=== PATIENT | female | born 1965 | race Caucasian/White ===

== ENCOUNTER 2017-03-13 07:55 | Emergency (ER) | payer OTHER ==
[~2017-03-13] VITALS: Ht 162.6 cm; Wt 72.6 kg
[~2017-03-13 07:55] MED LIST: ALBUTEROL INHAL17 GM IH; ANTABUSE PO; BUSPIRONE HCL7.5 MG PO; CAMPRAL 333 MG333 M1 PO; CHERATUSSIN DA480 ML PO; CLONAZEPAM 0.50.5 M1 PO; CLONAZEPAM 1 MG1 M1 PO; DESYREL100 MG PO; DESYREL300 MG PO; DILANTIN100 MG PO; DOXYCYCLINE; GEODON20 MG PO; IBUPROFEN 600600 M1 PO; IBUPROFEN 800800 MG PO; KEFLEX500 MG PO; LATUDA20 MG PO; LATUDA40 MG PO; LEVAQUIN 500 M500 MG PO; LEVOTHYROXINE0.05 MG PO; LITHIUM CARBON300 M6 PO; NEURONTIN 300300 M1 PO; NEURONTIN 400400 M1 PO; NORFLEX100 MG PO; PENICILLIN V P500 MG PO; PERCOCET 5-3251 EACH PO; PRAVASTATIN SOD20 MG PO; PRISTIQ100 MG PO; PRISTIQ50 M1 PO; PROAIR HFA8.5 GM INH; PROZAC 20 MG20 M1 PO; SENNA PO; SIMVASTATIN20 MG PO; TRAZODONE 150150 M1 PO; VIMPAT150 MG PO; VISTARIL 25 MG25 M1 GT; VITAMIN D1000 UNI1 PO; ZOCOR20 MG PO
[2017-03-13] MEDS ORDERED: PERCOCET 5-3251 EACH PO (09:09)
[2017-03-13] MEDS ORDERED: ZOFRAN ODT4 MG PO (09:09)
== END 2017-03-13 08:44 | disposition home or self-care (01) ==
LOC: ER 07:55
DX: S52.502A Unspecified fracture of the lower end of left radius, initial encounter for closed fracture (principal); F17.210 Nicotine dependence, cigarettes, uncomplicated; F10.99 Alcohol use, unspecified with unspecified alcohol-induced disorder; Z88.5 Allergy status to narcotic agent; Z88.4 Allergy status to anesthetic agent; W01.0XXA Fall on same level from slipping, tripping and stumbling without subsequent striking against object, initial encounter; Y93.89 Activity, other specified; Y92.89 Other specified places as the place of occurrence of the external cause; Y99.8 Other external cause status

== ENCOUNTER 2017-03-15 12:53 | Emergency (ER) | payer OTHER ==
[~2017-03-15] VITALS: Ht 162.6 cm; Wt 54.4 kg
[~2017-03-15 12:53] MED LIST changes: +ZOFRAN ODT4 MG PO
== END 2017-03-15 13:50 | disposition home or self-care (01) ==
LOC: ER 12:53
DX: Z47.89 Encounter for other orthopedic aftercare (principal); M79.602 Pain in left arm; Z86.59 Personal history of other mental and behavioral disorders; Z88.5 Allergy status to narcotic agent; Z88.4 Allergy status to anesthetic agent; F17.210 Nicotine dependence, cigarettes, uncomplicated; F10.99 Alcohol use, unspecified with unspecified alcohol-induced disorder

== ENCOUNTER 2017-06-07 08:05 | Emergency (ER) | payer OTHER ==
[~2017-06-07] VITALS: Ht 162.6 cm; Wt 54.4 kg
[2017-06-07] MEDS ORDERED: PERCOCET 5-3251 EACH PO (10:11)
== END 2017-06-07 10:31 | disposition home or self-care (01) ==
LOC: ER 08:05
DX: S82.52XA Displaced fracture of medial malleolus of left tibia, initial encounter for closed fracture (principal); R05 Cough; F17.210 Nicotine dependence, cigarettes, uncomplicated; Z88.5 Allergy status to narcotic agent; Z91.5 Personal history of self-harm; Z88.8 Allergy status to other drugs, medicaments and biological substances; V09.9XXA Pedestrian injured in unspecified transport accident, initial encounter; Y93.89 Activity, other specified; Y92.89 Other specified places as the place of occurrence of the external cause; Y99.8 Other external cause status

== ENCOUNTER 2018-09-18 14:57 | Emergency (ER) | payer OTHER ==
[~2018-09-18] VITALS: Ht 162.6 cm; Wt 65.8 kg
[~2018-09-18 14:57] MED LIST changes: +ANTIVERT25 MG PO; +ESCITALOPRAM OX20 MG PO; +FLEXERIL PO; -LEVOTHYROXINE0.05 MG PO; +LEVOXYL50 MCG PO
[2018-09-18] MEDS ORDERED: VRAYLAR4.5 MG PO (15:07)
[2018-09-18] MEDS ORDERED: ACETAMINOPHEN-1 EAC1 PO (16:49)
[2018-09-18 17:22] VITALS: BP 128/67
[2018-09-18] MEDS ORDERED: PERCOCET PO (17:58)
== END 2018-09-18 18:07 | disposition home or self-care (01) ==
LOC: ER 14:57
DX: S82.61XA Displaced fracture of lateral malleolus of right fibula, initial encounter for closed fracture (principal); F17.210 Nicotine dependence, cigarettes, uncomplicated; E03.9 Hypothyroidism, unspecified; E78.5 Hyperlipidemia, unspecified; F31.9 Bipolar disorder, unspecified; Z90.89 Acquired absence of other organs; Z88.2 Allergy status to sulfonamides; Z88.8 Allergy status to other drugs, medicaments and biological substances; V49.40XA Driver injured in collision with unspecified motor vehicles in traffic accident, initial encounter; Y93.89 Activity, other specified; Y92.89 Other specified places as the place of occurrence of the external cause; Y99.8 Other external cause status

== ENCOUNTER 2019-05-09 20:55 | Emergency (ER) | payer OTHER ==
[~2019-05-09] VITALS: Ht 162.6 cm; Wt 65.8 kg
[~2019-05-09 20:55] MED LIST changes: +ACETAMINOPHEN-1 EAC1 PO; +PERCOCET PO; +VRAYLAR4.5 MG PO
[2019-05-09 20:57] VITALS: BP 157/97
[2019-05-09] MEDS ORDERED: KEFLEX500 M1 PO (21:51)
[2019-05-09] MEDS ORDERED: ULTRAM 50MG TAB50 MG PO (21:51)
== END 2019-05-09 22:00 | disposition home or self-care (01) ==
LOC: ER 20:55
DX: T25.221A Burn of second degree of right foot, initial encounter (principal); T31.0 Burns involving less than 10% of body surface; F17.210 Nicotine dependence, cigarettes, uncomplicated; E03.9 Hypothyroidism, unspecified; E78.5 Hyperlipidemia, unspecified; F31.9 Bipolar disorder, unspecified; Z90.89 Acquired absence of other organs; Z88.8 Allergy status to other drugs, medicaments and biological substances; Z88.2 Allergy status to sulfonamides

== ENCOUNTER 2019-10-17 12:14 | Emergency (ER) | payer OTHER ==
[~2019-10-17] VITALS: Ht 162.6 cm; Wt 65.8 kg
[~2019-10-17 12:14] MED LIST changes: +KEFLEX500 M1 PO; +ULTRAM 50MG TAB50 MG PO
[2019-10-17 12:16] VITALS: BP 152/90
[2019-10-17] MEDS ORDERED: IBUPROFEN 800800 M1 PO (13:19)
== END 2019-10-17 14:11 | disposition home or self-care (01) ==
LOC: ER 12:14
DX: S90.112A Contusion of left great toe without damage to nail, initial encounter (principal); S90.31XA Contusion of right foot, initial encounter; E03.9 Hypothyroidism, unspecified; E78.5 Hyperlipidemia, unspecified; Z90.89 Acquired absence of other organs; F31.9 Bipolar disorder, unspecified; F17.210 Nicotine dependence, cigarettes, uncomplicated; Z88.5 Allergy status to narcotic agent; Z88.8 Allergy status to other drugs, medicaments and biological substances; W10.8XXA Fall (on) (from) other stairs and steps, initial encounter; Y92.89 Other specified places as the place of occurrence of the external cause; Y93.89 Activity, other specified; Y99.8 Other external cause status